=== PATIENT | female | born 1990 | race Caucasian/White ===

== ENCOUNTER 2018-04-15 12:30 | Outpatient (RCR) | payer MEDICAID, SELFPAY ==
--- NOTE | 2018-03-23 14:29 | HP.PTEVAL ---
Patient's Visit Information RAN MAYEN is a 27 year old F referred to Physical Therapy by TRIP MATHEWS with a diagnosis of imbalance from MS. Date of Evaluation: 03/23/18 Physical Therapist: Orion Godfrey DPT, [place] - Visit Plan Frequency: 3x /Week Duration: 4-6 Weeks Plan: 3x/week for 3-6 weeks for: gait training to narrow KAY and turning radius. general postural strength and LE strength via sink exercises and mat for HEP. balance ex including weight shifts, foam stance and VOR and progress to HEP. - Subjective Subjective: Just diagnosed with MS. Could not hold bowels and L side feels wierd adn was falling alot and having hard time getting up and worsening for last couple years. Has been trying different doctors and saw neuro in the ER who told her she had MS based on MRIs. Was in ER 03/09-03/15 after falling and not get up. Put on steroids in the hospital but taken off and neuro will figure out her approp MS meds. To neuro on 04/07/[address] Lorenzana. Imbalance and falling in general but worse lately. Was walking last month while walking for no reason but L leg acts inapprpriately. Needed help up. L side does not feel right lately has been constantly. walking too far or much makes it worse. No dizziness or neuropathy. Slow walks through store or I will end up on my face. Has had bowel problems for years. No spinning, L side does feel numb. Sleep is OK. Works at [employer], not released back until see neuro. Live with girl firend and two kids. Ages 11 and 6. Right now home with her. No steps except to get into mobile home with two rails. Dresses self and cooks and cleans. - Pain LBP Pain Intensity (Out of 10): 0 Pain Intensity Range: 0, 8 Comment: worse with activity - Objective Ambulates on firm flat surface with plenty of light I but wide KAY is evident and L weakness noted in gait. Trasnfers I without UE. Steps are reciprocal but weaker on L LE and needs rail for safety descending. reflexes 3/3 patella and 2/3 achilles, clonus appraent in B achilles. sensation diminished in distal L LE compared to R to gross light touch. LE strength inv and ev l ankle 3+ and R 4-, DF, PF 4+ B, and knees 4+ B, and hips 4- L and 4 on R. coordination to reciprocal toe and heel tap is difficult on L vs. R. L UE weak vs R but aROM WFL. VOR walking is challenging to keep head moving. - Balance Scores Functional Gait Assessment Score: 23 % Disability: 23.3400 CATSIB Score (Max score 120 seconds): 93 - Goals Goal 1:: Pt score 27/30 on FGA to diminish fall risk Goal Time Frame: 4-6 Weeks Goal 2:: Pt walk without L weakness adn with normal KAY Goal Time Frame: 4-6 Weeks Goal 3:: Pt feel ready to return to work. Goal Time Frame: 4-6 Weeks Goal 4:: I approp HEP to minimize futrue fall risk Goal Time Frame: 4-6 Weeks Goal 5:: steps reciprocal without rail Goal Time Frame: 4-6 Weeks - Rehabilitation Potential Physical Therapy Diagnosis: imbalance from MS. Rehabilitation Potential: Fair - Anticipated Interventions Patient/Client Instruction: Educate patient on: Condition, Plan of Care For the Purpose of:: To improve nutrient delivery to tissue, To improve ability of physical actions for home/community/work/leisure, To improve gait and locomotor functions Therapeutic Exercise to Include: Strength training, Balance training, Gait and locomotor training For the Purpose of:: To improve muscle performance and motor function, To improve ability of physical actions for home/community/work/leisure, To improve balance Thank you for the opportunity to evaluate your patient. For Medicare and Medicare HMO plans, please review the plan of care and approve it. It will need to be FAXED BACK to us at [phone] for Medicare purposes. Please let me know if there are questions or concerns regarding this plan of care. Physician Signature: Date:
--- NOTE | 2018-04-15 13:21 | HP.PTDCSUM ---
HP - PT D/C Summary It has been my pleasure to treat RAN MAYEN under orders from [facility] MATHEWS, for the diagnosis of imbalance from MS for a total of 9 visit(s). Discharge Date: 04/15/18 Please see the following information for a summary of their discharge status. - Subjective Subjective: Went to work Friday without too much difficulty. Not having any episodes nearly as often. Balance is OK, walking and driving OK, L hand still shakes at times. Saw specialist and will be on IV monthly for meds to keep symptoms to a minimum. Home exercises are going OK. No pain yesterday or today. - Pain LBP Pain Intensity (Out of 10): 0 - Overall Improvement % Improvement: 70 - Objective Objective/Function: KYA still wide in gait but improving,. +5 on FGA. Steps are reciprocal without rail. Transfers are I. Pt wishes to continue on her own vs PT f/u. Will let specialist know if she has problems. - Goals Goal 1:: Pt score 27/30 on FGA to diminish fall risk Goal Progress: Goal Met Goal 2:: Pt walk without L weakness adn with normal KAY Goal Progress: Progressing Goal 3:: Pt feel ready to return to work. Goal Progress: Goal Met Goal 4:: I approp HEP to minimize futrue fall risk Goal Progress: Goal Met Goal 5:: steps reciprocal without rail Goal Progress: Goal Met - Plan Plan: D/C - D/C Information Discharge Comments: Patient to continue HEP 3x/week adn call if concerns. If there are questions or concerns regarding this patient's physical therapy, please feel free to call me at [phone]. Thank you for the referral of this patient. Sincerely, Orion Godfrey, DPT, [place]
== END 2018-04-15 19:00 | disposition home or self-care (01) ==
LOC: PT 12:30
PROVIDERS: PCP Nurse Practitioner Adult Health
DX: G35 Multiple sclerosis (principal)
CPT/HCPCS: 97110; 97162; 97530

== ENCOUNTER 2018-05-03 19:52 | Emergency (ER) | payer MEDICAID, SELFPAY ==
[2018-05-03 19:53] VITALS: BP 121/72; PULSE 110; RESP 18; TEMP 36.7; O2SAT 100; BMI 33.7
--- NOTE | 2018-05-03 20:29 | ED.RN ---
THIS RN CALLED PT NAME AT 2019. PT NOT PRESENT. REGISTRATION NOTIFIED.
== END 2018-05-03 20:20 | disposition left against medical advice (07) ==
LOC: ED 21:03
PROVIDERS: Emergency Provider Emergency Medicine; PCP Nurse Practitioner Adult Health
DX: R69 Illness, unspecified (principal); Z53.21 Procedure and treatment not carried out due to patient leaving prior to being seen by health care provider

== ENCOUNTER 2018-09-08 08:19 | Emergency (ER) | payer MEDICAID, SELFPAY ==
[2018-09-08 08:20] VITALS: BP 121/68; PULSE 98; RESP 16; TEMP 36.9; O2SAT 99; BMI 33.0
--- NOTE | 2018-09-08 09:05 | ED.VISSUMM ---
- ER Visit Summary Date of Service: 09/08/18 Chief Complaint: Headache History of Present Illness: The patient is a 28 F history of headaches and a virus. Patient states that yesterday around noon a gradual onset of frontal headache. Denies any fall, trauma, fever or sinus congestion or drainage. No neck pain. Headache progressively worsened throughout the day. She denies currently any vomiting or trouble moving her arms or legs. She does get headaches from time to time. She is on no blood thinners. Physical Examination: Well-appearing young female. Family is in the room. Vital signs are stable. Afebrile. Blood pressure 121/68. She is in no distress. HEENT exam pupils round reactive light. Extra motions are intact. Posterior pharynx normal. No signs of trauma to her face or scalp. Neck nontender. No lymphadenopathy. No meningismus. Able to touch chin to chest. Lungs clear to auscultation bilaterally. Heart regular rate and rhythm no murmur. Abdomen soft nontender. Neurologic exam unremarkable. She is awake alert. Answering questions. No facial droop. Pupils round reactive light extra motions are intact. 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 Fingertip to nose within normal limits. Dorsi and plantar flexion intact. 5 out of 5 motor strength both upper and lower extremities. Heel to flores within normal limits. Test Results: None Emergency Department Course and Treatment: Patient treated with 1 L normal saline, IV Toradol and IV Benadryl. Repeat exam after medications patient patient left prior to discharge. According to nursing staff they wanted a work excuse. And her headache had resolved. However the patient left prior to a discharge instructions. Treatment Plan: Left prior to discharge Disposition: Discharge Impression: Acute cephalgia History of MS This note was generated with [employer] dictation software. It may contain incorrect words, spelling, and punctuation that were not noted in review of the chart prior to signing ED Disposition - Plan for ED Patient: Chief Complaint: Headache Referrals: Leslee Clayton NP-C [Primary Care Provider] -
[2018-09-08] MEDS: 0.9% Normal Saline 1,000 ML 999 ML IV (09:37)
[2018-09-08] MEDS: Ketorolac 30 MG/ML Syringe IV (09:46)
[2018-09-08] MEDS: DiphenhydrAMINE 50 MG/ML Syringe 25 MG IV (09:46)
[2018-09-08 11:09] VITALS: BP 111/58; PULSE 78; RESP 12; O2SAT 99
--- NOTE | 2018-09-08 12:37 | ED.RN ---
THIS RN CALLED TO ROOM, PT'S MOTHER ANGRY, STATES THEY ARE DONE WAITING, THIS IS RIDICULOUS WITH TWO KIDS. THIS RN APOLOGIZED, STATES WE'VE HAD VERY CRITICAL PTS COMING IN, MD'S ARE TIED UP WITH THEM, STATED WE WOULD BE WITH THEM SOON POSSIBLE. MOTHER DEMAND IV REMOVED, STATES THEY ARE JUST LEAVING. MD NOTIFIED.
== END 2018-09-08 12:42 | disposition home or self-care (01) ==
LOC: ED 09:13
PROVIDERS: Emergency Provider Emergency Medicine; PCP Nurse Practitioner Adult Health
DX: R51 Headache (principal); G35 Multiple sclerosis
CPT/HCPCS: 96361; 96374; 96375; 99283; J7030; A4216